=== PATIENT | male | born 1950 | race Caucasian/White ===

== ENCOUNTER 2024-06-02 06:46 | Day surgery (SDC) | payer OTHER, SELFPAY ==
--- NOTE | 2024-05-30 15:34 | PTCARENOTE ---
Patient states he takes Jardiance and Warfarin daily and he was not provided instructions regarding medication usage prior to surgery. Shayna Gama, Yamilka Cortes and Torie Green notified.
[2024-06-02] VITALS (8 sets, daily range): BP systolic 101–158; BP diastolic 65–101; BMI 38.5
--- NOTE | 2024-06-02 09:04 | W.PN.UPDATE ---
Update Note
Progress Note Update
D/w patient Cardiology risk stratification. He is deemed 'high cardiac risk' without any ability to modify this risk. I explained this means he has a higher than normal risk of having a cardiac issue during or after surgery, including but not
limited to arrhythmias, LA, and even . He responded that he is aware of these risks and would like to proceed with repair today. INR pending.
[2024-06-02] MEDS: TYLENOL 1000 MG PO (09:38)
[2024-06-02 09:57] LABS: INR 1.02; PT 13.7 Sec (11.4-14.6)
--- NOTE | 2024-06-02 11:36 | W.IMMPOSTOP ---
Surgical Immed Post Op Note
-
Primary Surgeon: Mercedes
Assisting: Samuel MIR
Pre-op Diagnosis: Umbilical hernia
Post-op Diagnosis: Incarcerated umbilical hernia and incarcerated epigastric ventral incisional hernias
Procedure Performed: Robot assisted laparoscopic repair of incarcerated epigastric incisional and incarcerated umbilical hernias (rTAPP) [total hernia size 9.5cm]
Anesthesia Type: GETA + TAP block
Specimen / Cultures: None
Estimated Blood Loss: 5cc
Complications: None immediate
Operative Findings: 1.5cm x 1.5cm umbilical hernia with incarcerated fat, 5cm fascial bridge to additional area of japanese cheese defects where his chest tubes were placed after cardiac surgery, this area encompassed approx 3cm x 3cm with 3x 1cm x
5mm defects identified. Incisional hernias closed with 2-0 PDS. [id number] bard soft mesh
--- NOTE | 2024-06-02 11:39 | OR.RPT ---
Operative Report
Operative Report
Primary Surgeon: Mercedes
Assisting: Samuel MIR
Pre-op Diagnosis: Umbilical hernia
Post-op Diagnosis: Incarcerated umbilical hernia and incarcerated epigastric ventral incisional hernias
Procedure Performed: Robot assisted laparoscopic repair of incarcerated epigastric incisional and incarcerated umbilical hernias (rTAPP) [total hernia size 9.5cm]
Anesthesia Type: GETA + TAP block
Specimen / Cultures: None
Estimated Blood Loss: 5cc
Complications: None immediate
Operative Findings: 1.5cm x 1.5cm umbilical hernia with incarcerated fat, 5cm fascial bridge to additional area of [place] cheese defects where his chest tubes were placed after cardiac surgery, this area encompassed approx 3cm x 3cm with 3x 1cm x
5mm defects identified. Incisional hernias closed with 2-0 PDS. [id number] bard soft mesh
Date of surgery: 06/02/24
Indications:� This 74M developed a symptomatic umbilical hernia. Robot assisted laparoscopic repair was planned.
Description of procedure:� The patient was taken to the operating room and positioned into supine position. The patient�s abdomen was prepped and draped in standard sterile fashion. A time-out was completed verifying correct patient, procedure,
site, positioning, and implants and special equipment prior to beginning this procedure.� The hernia was partially manually reduced after induction. A stab incision was made in the left upper quadrant, a Veress needle was inserted and proper
position was confirmed by aspiration and saline drop test. Following this, pneumoperitoneum was created with insufflation of carbon dioxide to 12 mmHg. Then a 8mm robotic trocar was inserted at the left anterior axillary line at the level of the
umbilicus. The laparoscope was inserted and no injuries were identified in the area. Under direct visualization, the initial trocar was exposed and two 8mm trocars were placed a hand's breadth above and below the initial trocar under direct
visualization.
Attention was turned to the umbilical defect. The peritoneum was incised several cm superior to the defect and a peritoneal flap was developed in transverse and caudad directions using blunt and sharp dissection and judicious electrocautery. The
defect was identified and measured as above. Incarcerated fatty contents were reduced. An additional area with several defects in the epigastrium was identified, with 3 discrete incisional hernias with incarcerated fat reduced and repaired as
above. The incisional defects were closed with 2-0 PDS stratafix suture and the umbilical defect was closed with 0 PFDS stratafix. A 12cm x 12cm bard soft mesh was passed into the abdomen. It was placed against the underside of the abdominal wall
and secured in place with 2-0 vicryl sutures at all four corners and group home along each side. The flap was closed over the mesh and secured with 2-0 monocryl stratafix suture. One small flap rent superior to the defect was closed with 2-0 monocryl
stratafix suture. A 14g angiocath was used to decompress the preperitoneal space. The flap sealed and suctioned nicely up to the abdominal wall. The mesh did not fold nor curl. A transversus abdominis plane block was then performed under
laparoscopic vision with marcaine/decadron.
After ensuring adequate hemostasis, the trocars were removed and the pneumoperitoneum allowed to escape. The trocar incisions were closed at the skin level using 4-0 monocryl and topical skin adhesive. All counts were correct and the patient
tolerated the procedure well and was taken to the postanesthesia care unit in stable condition.
The assistance of Samuel MIR was required due to the complexity of the procedure. During the procedure she assisted with retraction, resection, and closure of the wound.
== END 2024-06-02 13:35 | disposition home or self-care (01) ==
LOC: SDS 06:46
PROVIDERS: ATTENDING PHYSICIAN Surgery
DX: K43.0 Incisional hernia with obstruction, without gangrene (principal); K42.0 Umbilical hernia with obstruction, without gangrene; Z79.01 Long term (current) use of anticoagulants
CPT/HCPCS: 49594; 85610; C1781